=== PATIENT | female | born 1970 | race Caucasian/White ===

== ENCOUNTER → 2016-04-06 | Outpatient (CLI) | payer BC ==
--- NOTE | 2016-04-07 09:07 | MM ---
Reason for exam: screening (asymptomatic). Baseline mammogram. History: Patient had first child at age 34. Family history of breast cancer in maternal aunt at age 64. Took hormonal contraceptives for 9 years beginning at age 24. Physical Findings: Nurse did not find any significant physical abnormalities on exam. MG Screening Mammo w CAD Bilateral CC and MLO view(s) were taken. The breast tissue is heterogeneously dense. This may lower the sensitivity of mammography. Finding: There is a 10 mm mass in the upper outer quadrant of the right breast consistent with lymph nodes. ASSESSMENT: Benign, BI-RAD 2 RECOMMENDATION: Routine screening mammogram of both breasts in 1 year.
== END | disposition home or self-care (01) ==
LOC: RADMAMWWP 09:35
PROVIDERS: ATTEND Internal Medicine
DX: Z12.31 Encounter for screening mammogram for malignant neoplasm of breast (principal)

== ENCOUNTER → 2016-07-09 | Outpatient (CLI) | payer BC ==
--- NOTE | 2016-07-09 10:49 | US ---
EXAMINATION TYPE: US pelvic complete DATE OF EXAM: 07/09/2016 10:35 AM COMPARISON: CLINICAL HISTORY: [id number] ABN UTERINE AND VAGINAL BLEEDING. Abnormal bleeding TECHNIQUE: Transabdominal (TA) Date of LMP: 06/12/2016 EXAM MEASUREMENTS: Uterus: 12.5 x 6.3 x 5.1 cm Endometrial Stripe: 1.7 cm Right Ovary: 4.1 x 3.0 x 3.2 cm Left Ovary: 3.9 x 3.0 x 3.4 cm 1. Uterus: Anteverted wnl 2. Endometrium: Thickened 3. Right Ovary: multiple follicles 4. Left Ovary: multiple follicles. Cystic lesion seen adjacent to LO - 2.9 x 1.9 x 1.7 cm. Peduncu lated simple cyst vs adnexal cyst Spectral, color and waveform doppler imaging shows good arterial and venous flow within the ovaries ; there is no evidence for ovarian torsion. 5. Bilateral Adnexa: Right adnexa- wnl 6. Posterior cul-de-sac: no free fluid IMPRESSION: 1. Nonspecific thickening of the endometrium. 2. Cystic ovarian lesion on the left. Consider follow-up study in 6 weeks.
== END | disposition home or self-care (01) ==
LOC: RADUSWWP 10:13
PROVIDERS: ATTEND Internal Medicine
DX: N83.202 Unspecified ovarian cyst, left side (principal); R93.8 Abnormal findings on diagnostic imaging of other specified body structures
CPT/HCPCS: 76856

== ENCOUNTER → 2016-10-10 | Outpatient (CLI) | payer BC ==
[2016-10-10 10:57] LABS: Basophils % (A) 1 %; CH 30.6; CHCM 33.6; Eosinophils # (A) 0.1 k/uL (0-0.7); Eosinophils % (A) 2 %; HCT 44.2 % (34.0-46.0); HDW 2.48; HGB 14.3 gm/dL (11.4-16.0); Luc # (Auto) 0.13; Luc % (Auto) 2; Lymphocytes # (A) 2.1 k/uL (1.0-4.8); Lymphocytes % (A) 30 %; MCH 29.7 pg (25.0-35.0); MCHC 32.4 g/dL (31.0-37.0); MCV 91.6 fL (80.0-100.0); Mean Platelet Volume 7.2; Monocytes # (A) 0.4 k/uL (0-1.0); Monocytes % (A) 6 %; Neutrophils # (A) 4.4 k/uL (1.3-7.7); Neutrophils % (A) 61 %; RBC 4.83 m/uL (3.80-5.40); WBC 7.2 k/uL (3.8-10.6); WBC (Perox) 7.01
== END ==
LOC: LABPAT 10:24
PROVIDERS: ATTEND Obstetrics & Gynecology
DX: Z01.812 Encounter for preprocedural laboratory examination (principal); N92.0 Excessive and frequent menstruation with regular cycle
CPT/HCPCS: 82670; 83001; 83002; 84146; 85025

== ENCOUNTER 2016-10-19 06:56 | Day surgery (SDC) | payer BC ==
[2016-10-09 10:32] VITALS: BMI 31.9
[~2016-10-19 06:56] MED LIST: DEXAMETHASONE SOD PHOSPHATE 10 MG/ML 1 ML VIAL IV ONE; HYDROmorphone 1 MG/ML 1 ML SYRINGE IVP PRN; ONDANSETRON 4 MG/2 ML VIAL IVP ONE; Pre Op ABX Message 1 EACH MISC MISCELLANE ONE
--- NOTE | 2016-10-19 07:14 | P.HPOB ---
History of Present Illness H&P Date: 10/19/16 Chief Complaint: Dysfunctional uterine bleeding Asya is 46 needle female who has dysfunctional uterine bleeding. Her last 4 -6 months she has had very irregular bleeding with passage of clots. Bleeding has become very problematic well may represent normal perimenopausal bleeding, the lining of her uterus with 1.7 cm and requires tissue sample. Discussion on endometrial biopsy versus D&C was made and she is opted for dilation and curettage with hysteroscopy. Risks/benefits/alternatives to this procedure were discussed with the patient in detail and all questions were answered for her prior to proceeding to the operating room. On physical exam vital signs are stable and afebrile. Heart regular, lungs clear, extremities without pain. Abdomen is soft and nontender. Pelvic exam has been deferred to the operating room. Assessment dysfunctional uterine bleeding. Plan D&C hysteroscopy. Past Medical History Past Medical History: Skin Disorder Additional Past Medical History / Comment(s): MIGRAINE HEADACHE, NODULES ON THYROID, ROSACEA History of Any Multi-Drug Resistant Organisms: None Reported Past Surgical History: Appendectomy Additional Past Surgical History / Comment(s): LASIK,GANGLION CYST RIGHT WRIST, SKIN LESION REMOVED Past Anesthesia/Blood Transfusion Reactions: Family History of Problems w/ Anesthesia Additional Past Anesthesia/Blood Transfusion Reaction / Comment(s): DAUGHTER - TOOK LONGER TO WAKE UP AFTER SURGERY/ PATIENT STATES IT ALSO TAKES HER LONGER TO WAKE UP WITH GENERAL ANESTHETIC " Smoking Status: Never smoker - Past Family History Mother Family Medical History: No Reported History Medications and Allergies Home Medications Medication Instructions Recorded Confirmed Type Baclofen [Lioresal] 5 mg PO HS PRN 10/09/16 10/09/16 History Doxycycline [Vibramycin] 50 mg PO DAILY 10/09/16 10/09/16 History Multivitamins, Thera [Multivitamin 1 tab PO DAILY 10/12/16 10/12/16 History (formulary)] Allergies Allergy/AdvReac Type Severity Reaction Status Date / Time amoxicillin Allergy Rash/Hives Verified 10/09/16 09:08 clarithromycin Allergy SWELLING Verified 10/12/16 10:43 OF THROAT Penicillins Allergy Rash/Hives Verified 10/09/16 09:08 Sulfa (Sulfonamide Allergy Rash/Hives Verified 10/09/16 09:08 Antibiotics) Exam Osteopathic Statement: *. No significant issues noted on an osteopathic structural exam other than those noted in the History and Physical/Consult.
[2016-10-19] MEDS ORDERED: LACTATED RINGERS 1,000 ML IV ONE (07:33)
[2016-10-19] MEDS ORDERED: LIDOCAINE 1% 20 ML VIAL (10MG/ML) FOR IV START INTRADERMA ONE (07:33)
[2016-10-19] MEDS ORDERED: fentaNYL (PF) 50 MCG/ML 2 ML AMP ONE (08:49)
[2016-10-19] MEDS ORDERED: KETOROLAC 30 MG/ML 1 ML VIAL ONE (08:49)
[2016-10-19] MEDS ORDERED: MIDAZOLAM 2 MG/2 ML VIAL ONE (08:49)
[2016-10-19] MEDS ORDERED: LIDOCAINE 1% INJ 10MG/ML (20 ML MDV) ONE (08:49)
[2016-10-19] MEDS ORDERED: PROPOFOL 10 MG/ML 20 ML VIAL IV ONE (08:49)
--- NOTE | 2016-10-19 09:11 | P.OP ---
Date of Procedure: 10/19/16 Preoperative Diagnosis: Dysfunctional uterine bleeding Postoperative Diagnosis: Same Procedure(s) Performed: D&C with hysteroscopy Implants: Anesthesia: CASSA Surgeon: Familia Pascual Estimated Blood Loss (ml): 3 Pathology: other (Uterine curettings) Condition: stable Disposition: same day Indications for Procedure: Operative Findings: No gross pathology Description of Procedure: Patient states the operating suite where a general anesthetic was found be adequate. She was prepped and draped in the normal sterile fashion placed in dorsal lithotomy position. Pelvic exam is otherwise unremarkable. Once positioned speculum was inserted into the vagina and anterior lip of the cervix identified and grasped with effaced Allis clamp area cervix was then dilated and camera was inserted. No gross pathology was noted therefore camera was removed and sharp curettings of the endometrium were obtained. All tissues collected and placed on Telfa. It was then sent to pathology for evaluation. Once completed instruments were correct as were needle counts. Patient was then taken to the recovery room in stable condition. Plan - Discharge Summary New Discharge Prescriptions: New Ibuprofen [Motrin] 600 mg PO Q6HR PRN #30 tab PRN Reason: Pain No Action Doxycycline [Vibramycin] 50 mg PO DAILY Baclofen [Lioresal] 5 mg PO HS PRN PRN Reason: Muscle Spasm Multivitamins, Thera [Multivitamin (formulary)] 1 tab PO DAILY Discharge Medication List Baclofen [Lioresal] 5 mg PO HS PRN 10/09/16 [History] Doxycycline [Vibramycin] 50 mg PO DAILY 10/09/16 [History] Multivitamins, Thera [Multivitamin (formulary)] 1 tab PO DAILY 10/12/16 [History ] Ibuprofen [Motrin] 600 mg PO Q6HR PRN #30 tab 10/19/16 [Rx] Follow up Appointment(s)/Referral(s): Familia Pascual DO [Doctor of Osteopathic Medicine] - 2 Weeks Activity/Diet/Wound Care/Special Instructions: Heavy lifting, limit stairs and driving, and pelvic rest. If any high temperatures, heavy bleeding, or severe pain call my office
[2016-10-19 09:27] VITALS: RESP 16; TEMP 97
[2016-10-19] MEDS: LACTATED RINGERS 1,000 ML IV SCH ×2 (09:51→10:12)
[2016-10-19 10:34] VITALS: BP 118/65; PULSE 80
== END 2016-10-19 10:49 | disposition home or self-care (01) ==
LOC: OR 06:56
PROVIDERS: ATTEND Obstetrics & Gynecology
DX: N93.8 Other specified abnormal uterine and vaginal bleeding (principal); N92.0 Excessive and frequent menstruation with regular cycle; R93.8 Abnormal findings on diagnostic imaging of other specified body structures; Z88.0 Allergy status to penicillin; Z88.2 Allergy status to sulfonamides; Z88.8 Allergy status to other drugs, medicaments and biological substances; Z79.899 Other long term (current) drug therapy
CPT/HCPCS: 58558; 81025; 88305; J2250; J1100; J2405; J2001; J3010; J1885; J2704

== ENCOUNTER → 2020-08-30 | Outpatient (CLI) | payer BC ==
[2020-08-30 11:36] LABS: Basophils # (A) 0.04 X 10*3/uL (0.00-0.10); Basophils % (A) 0.8 %; Eosinophils # (A) 0.14 X 10*3/uL (0.04-0.35); Eosinophils % (A) 2.7 %; HCT 43.6 % (37.2-46.3); HGB 14.4 g/dL (12.0-15.0); Lymphocytes # (A) 1.93 X 10*3/uL (0.90-5.00); Lymphocytes % (A) 37.2 %; MCH 29.8 pg (27.0-32.0); MCV 90.3 fL (80.0-97.0); Mean Platelet Volume 10.1 fL (9.5-12.2); Monocytes # (A) 0.51 X 10*3/uL (0.20-1.00); Monocytes % (A) 9.8 %; Neutrophils # (A) 2.55 X 10*3/uL (1.80-7.70); Neutrophils % (A) 49.1 %; Platelet Count 286 X 10*3/uL (140-440); RBC 4.83 X 10*6/uL (4.10-5.20); RDW 12.7 % (11.5-14.5); WBC 5.19 X 10*3/uL (4.50-10.00)
[2020-08-30 13:00] LABS: Luteinizing Hormone 49.4 mIU/mL; Prolactin 8.1 ng/mL (2.8-29.2)
[2020-08-30 13:42] LABS: % Iron Saturation 30.25 (12.00-45.00); ALT 50 U/L (8-44); AST 29 U/L (13-35); African American GFR (CKD) 116.3 (60.0-200.0); Albumin/Globulin Ratio 1.96 (1.60-3.17); Alkaline Phosphatase 94 U/L (41-126); BUN/Creat Ratio 18.57 Ratio (12.00-20.00); Calcium 9.2 mg/dL (8.7-10.3); Carbon Dioxide 27.7 mmol/L (21.6-31.8); Chloride 108 mmol/L (96-109); Chol/HDL Ratio 3.23; Cholesterol 184 mg/dL (0-200); Globulin 2.3 g/dL (1.6-3.3); Glucose 109 mg/dL (70-110); Iron 95 ug/dL (50-170); LDL Cholesterol,Calculated 107.2 mg/dL (0.0-131.0); Non-African American GFR(CKD) 100.3 (60.0-200.0); Phosphorus 3.7 mg/dL (2.4-5.1); Potassium 4.5 mmol/L (3.5-5.5); Sodium 143 mmol/L (135-145); Total Bilirubin 0.6 mg/dL (0.3-1.2); Total Iron Binding Capacity 314 ug/dL (228-460); Total Protein 6.8 g/dL (6.2-8.2)
[2020-08-30 13:48] LABS: Protein, Total 6.7 g/dL (6.2-8.2)
[2020-08-30 13:53] LABS: Ferritin 88.7 ng/mL (10.0-291.0); Follicle Stimulating Hormone 76.2 mIU/mL
[2020-08-30 17:37] LABS: Folate, Serum >24.0 ng/mL
[2020-08-30 19:33] LABS: Hemoglobin A1C 5.1 % (4.0-6.0)
[2020-08-30 19:46] LABS: Hepatitis B Surface Antigen Non-Reactive (Non-Reactive); Hepatitis C IgG Antibody Non-Reactive (Non-Reactive)
[2020-08-31 14:24] LABS: Ceruloplasmin 25.7 mg/dL (20.0-60.0)
[2020-09-02 17:47] LABS: Albumin 3.94 g/dL (3.80-4.90); Gamma Globulin 0.84 g/dL (0.70-1.50)
== END | disposition home or self-care (01) ==
LOC: LABWHC1 08:09
PROVIDERS: ATTEND Internal Medicine Gastroenterology
DX: E04.2 Nontoxic multinodular goiter (principal); K76.0 Fatty (change of) liver, not elsewhere classified; R94.5 Abnormal results of liver function studies
CPT/HCPCS: 36415; 80053; 80061; 82024; 82103; 82306; 82390; 82533; 82607; 82728; 82746; 83001; 83002; 83036; 83540; 83550; 83970; 84100; 84146; 84165; 84439; 84443; 85025; 86038; 86803; 87340

== ENCOUNTER → 2021-01-27 | Outpatient (CLI) | payer BC ==
[2021-01-27 16:33] LABS: Albumin 4.6 g/dL (3.8-4.9); Albumin/Globulin Ratio 1.98 (1.60-3.17); Anion Gap 10.7 mmol/L (4.00-12.00); BUN/Creat Ratio 16.37 Ratio (12.00-20.00); Calcium 9.6 mg/dL (8.7-10.3); Carbon Dioxide 26.5 mmol/L (21.6-31.8); Globulin 2.3 g/dL (1.6-3.3); Non-African American GFR(CKD) 94.9 (60.0-200.0); Potassium 4.1 mmol/L (3.5-5.5); T4, Free (Free Thyroxine) 1.18 ng/dL (0.800-1.800); Total Bilirubin 0.4 mg/dL (0.30-1.20); Total Protein 6.9 g/dL (6.2-8.2)
== END | disposition home or self-care (01) ==
LOC: LABWHC1 07:56
PROVIDERS: ATTEND Internal Medicine Endocrinology, Diabetes & Metabolism
DX: E04.2 Nontoxic multinodular goiter (principal)
CPT/HCPCS: 36415; 80053; 84439; 84443